=== PATIENT | female | born 1955 | race Caucasian/White ===

== ENCOUNTER 2021-11-18 05:30 | Day surgery (SDC) | payer OTHER ==
[~2021-11-18] VITALS: Ht 154.9 cm; Wt 78.0 kg
[2021-11-18] MEDS ORDERED: CEFAZOLIN SOD 1 GM/ ISO 50 ML PREMIX IV ONE (07:00)
[2021-11-18] MEDS ORDERED: fentaNYL CITRATE 250 MCG/5 ML AMP IV ONE (07:45)
[2021-11-18] MEDS ORDERED: ROCURONIUM BROMIDE 10 MG/ML (ZEMURON) IV ONE (07:45)
[2021-11-18] MEDS ORDERED: ONDANSETRON HCL 4 MG/2 ML VIAL IVP ONE (07:45)
[2021-11-18] MEDS ORDERED: MIDAZOLAM HCL 5 MG/5 ML VIAL IVP ONE (07:45)
[2021-11-18] MEDS ORDERED: WATER FOR IRRIGATION,STERILE 1,000 ML IRRIG.SOLN IR ONE (07:45)
[2021-11-18] MEDS ORDERED: DESFLURANE 15 MIN GAS INH ONE (07:45)
[2021-11-18] MEDS ORDERED: BUPIVACAINE /EPINEPHRINE/PF 0.25% 30 ML VIAL INJ ONE (07:45)
[2021-11-18] MEDS ORDERED: LIDOCAINE 2%, 20 ML MDV INJ ONE (07:45)
[2021-11-18] MEDS ORDERED: SUGAMMADEX SODIUM 200 MG/2 ML VIAL IV ONE (07:45)
[2021-11-18] MEDS ORDERED: KETOROLAC TROMETHAMINE 30 MG VIAL IVP ONE (07:45)
[2021-11-18] MEDS ORDERED: NS 1000 ML IV.SOLN IV ONE (07:45)
[2021-11-18] MEDS ORDERED: LR 1,000 ML IV.SOLN IV ONE (07:45)
[2021-11-18] MEDS ORDERED: DEXAMETHASONE SOD PHOSPHATE 4 MG/ML VIAL IVP ONE (07:45)
[2021-11-18] MEDS ORDERED: METOCLOPRAMIDE HCL 10 MG/2 ML VIAL IVP PRN (08:30)
[2021-11-18] MEDS ORDERED: HYDROmorphone 1 MG/ML INJ. CARTRIDGE IVP PRN ×2 (08:30→09:15)
[2021-11-18] MEDS ORDERED: MIDAZOLAM HCL 2 MG/2 ML VIAL (VERSED) IVP PRN (08:30)
[2021-11-18] MEDS ORDERED: hydrALAZINE HCL 20 MG/ML VIAL IVP PRN (08:30)
[2021-11-18] MEDS ORDERED: LABETALOL 100 MG/ 20ML VIAL IVP PRN (08:30)
[2021-11-18] MEDS ORDERED: MEPERIDINE HCL/PF 25 MG/ML DISP.SYRIN IVP PRN (08:30)
[2021-11-18] MEDS ORDERED: LR 1,000 ML IV SCH (08:30)
[2021-11-18] MEDS ORDERED: D5/0.45 NS 1,000 ML IV SCH (09:15)
[2021-11-18] MEDS ORDERED: HYDROcodone/ACETAMIN 5-325 MG TAB (NORCO/ VICODIN) PO PRN ×2 (09:15)
[2021-11-18] MEDS: HYDROmorphone 1 MG/ML INJ. CARTRIDGE IVP PRN ×2 (09:41→09:50)
[2021-11-18] MEDS ORDERED: HYDROmorphone 1 MG/ML INJ. CARTRIDGE ONE (09:44)
[2021-11-18 14:17] VITALS: BP_SYST 149
== END 2021-11-18 11:20 | disposition home or self-care (01) ==
LOC: SDS 05:30 → SMU 05:30 → SDS 11:20
PROVIDERS: ATTEND Colon & Rectal Surgery
DX: K80.12 Calculus of gallbladder with acute and chronic cholecystitis without obstruction (principal); K21.9 Gastro-esophageal reflux disease without esophagitis; I10 Essential (primary) hypertension; Z20.822 Contact with and (suspected) exposure to COVID-19; Z79.899 Other long term (current) drug therapy
CPT/HCPCS: 36415 ×2; 47563; 74300; 88304; 87426; U0003; J3490 ×2; J0690; J1100; J1885; J2001; J2250; J2405; J3010; J1170; Q9967; J7120; J7030; 76000